=== PATIENT | male | born 1950 | race Two or more races ===

== ENCOUNTER 2017-02-15 00:09 | Inpatient (IN) | payer MEDICARE ==
[~2017-02-15] VITALS: Ht 175.3 cm; Wt 112.0 kg
[~2017-02-15 00:09] MED LIST: ALBU18HF INH; ALBU2.5V NPPB; AZIT500T5 PO; BENZ-17 PO; GUAI10LI PO; GUAI237L83 PO; PANT40TA5 PO; PRED20TA PO; TAMS-11 PO
[2017-02-15] MEDS ORDERED: ALBUTEROL/IPRATROPIUM 2.5MG/0.5MG, 3 ML ONE (00:48)
[2017-02-15] MEDS ORDERED: ALBUTEROL SULFATE 2.5 MG/3 ML ONE (00:49)
[2017-02-15] MEDS ORDERED: methylPREDNISolone SOD SUCC 125 MG/2 ML ONE (00:53)
[2017-02-15 00:59] LABS: BASOPHILS # (AUTO) 0.04 x10^3/uL (0-0.1); BASOPHILS % (AUTO) 1 % (0-1); EOSINOPHILS # (AUTO) 0.58 x10^3/uL (0-0.4); EOSINOPHILS % (AUTO) 7 % (1-7); LYMPHOCYTES # (AUTO) 2.07 x10^3/uL (1-3.4); LYMPHOCYTES % (AUTO) 24 % (22-44); MD NO; MEAN CORPUSCULAR HEMOGLOBIN 30.9 pg (27.5-34.5); MEAN CORPUSCULAR VOLUME 90.8 fL (81-97); MEAN PLATELET VOLUME 8.4 fL (7.4-10.4); MONOCYTES # (AUTO) 0.79 x10^3/uL (0.2-0.8); MONOCYTES % (AUTO) 9 % (2-9); NEUTROPHILS # (AUTO) 5.34 x10^3/uL (1.8-6.8); NEUTROPHILS % (AUTO) 61 % (42-75); PLATELET COUNT 194 x10^3/uL (130-400); RED BLOOD COUNT 4.36 x10^6/uL (4.38-5.82); RED CELL DISTRIBUTION WIDTH 13.1 % (9.4-14.8)
[2017-02-15] MEDS ORDERED: SODIUM CHLORIDE FLUSH 10ML SYR IVF ONE (01:00)
[2017-02-15] MEDS ORDERED: SODIUM CHLORIDE 0.9% 1,000ML IVBOLUS ONE (01:00)
[2017-02-15] MEDS ORDERED: methylPREDNISolone SOD SUCC 125 MG/2 ML IVP ONE (01:00)
[2017-02-15] MEDS ORDERED: ALBUTEROL SULFATE 2.5 MG/3 ML NPPB ONE ×2 (01:00→02:00)
[2017-02-15] MEDS ORDERED: ALBUTEROL/IPRATROPIUM 2.5MG/0.5MG, 3 ML NPPB ONE (01:00)
[2017-02-15 01:11] LABS: ALANINE AMINOTRANSFERASE 65 U/L (12-78); ALBUMIN 3.1 g/dL (3.4-5.0); ANION GAP 5 mmol/L (5-15); CALCIUM 8.3 mg/dL (8.5-10.1); CHLORIDE 107 mmol/L (98-107)
[2017-02-15 01:13] LABS: ALKALINE PHOSPHATASE 46 U/L (45-117); TOTAL PROTEIN 6.3 g/dL (6.4-8.2)
[2017-02-15 05:56] VITALS: BP 154/88
[2017-02-15] MEDS ORDERED: ONDANSETRON 2MG/ML, 2ML IVPush PRN (08:00)
[2017-02-15] MEDS ORDERED: ONDANSETRON ODT 4 MG PO PRN (08:00)
[2017-02-15] MEDS ORDERED: ACETAMINOPHEN 325 MG TABLET PO PRN (08:00)
[2017-02-15 08:12] VITALS: BP 149/83
[2017-02-15] MEDS: PANTOPROZOLE 40MG TABLET PO SCH (08:29)
[2017-02-15] MEDS: methylPREDNISolone SOD SUCC 125 MG/2 ML IVPush SCH ×2 (08:29→17:02)
[2017-02-15] MEDS: TAMSULOSIN 0.4 MG CAP.ER.24H PO SCH (08:29)
[2017-02-15] MEDS: SODIUM CHLORIDE 0.9% 1,000 ML IV SCH ×2 (08:29→21:23)
[2017-02-15] MEDS: ENOXAPARIN 40 MG/0.4 ML SQ SCH (08:30)
[2017-02-15] MEDS: GUAIFENESIN ER 600 MG TABLET PO SCH ×2 (08:30→21:19)
[2017-02-15] MEDS: FAMOTIDINE 20 MG TABLET PO SCH ×2 (08:30→21:19)
[2017-02-15] MEDS ORDERED: ALBUTEROL/IPRATROPIUM 2.5MG/0.5MG, 3 ML NPPB PRN ×2 (10:00)
[2017-02-15] MEDS ORDERED: ALBUTEROL/IPRATROPIUM 2.5MG/0.5MG, 3 ML NPPB SCH (11:00)
[2017-02-15] MEDS: ALBUTEROL/IPRATROPIUM 2.5MG/0.5MG, 3 ML NPPB SCH ×3 (12:25→19:53)
[2017-02-15 15:04] VITALS: BP 148/73
[2017-02-15 19:23] VITALS: BP 167/74
[2017-02-16] MEDS: methylPREDNISolone SOD SUCC 125 MG/2 ML IVPush SCH ×3 (01:08→17:15)
[2017-02-16 02:50] VITALS: BP 143/73
[2017-02-16 05:32] LABS: BASOPHILS % (AUTO) 0 % (0-1); EOSINOPHILS % (AUTO) 0 % (1-7); LYMPHOCYTES # (AUTO) 0.57 x10^3/uL (1-3.4); LYMPHOCYTES % (AUTO) 4 % (22-44); MD NO; MEAN CORPUSCULAR HGB CONC 34.6 g/dL (33.2-36.2); MEAN CORPUSCULAR VOLUME 89.5 fL (81-97); MEAN PLATELET VOLUME 8.5 fL (7.4-10.4); MONOCYTES # (AUTO) 0.32 x10^3/uL (0.2-0.8); MONOCYTES % (AUTO) 2 % (2-9); NEUTROPHILS # (AUTO) 12.73 x10^3/uL (1.8-6.8); NEUTROPHILS % (AUTO) 93 % (42-75); PLATELET COUNT 212 x10^3/uL (130-400); RED BLOOD COUNT 4.58 x10^6/uL (4.38-5.82); RED CELL DISTRIBUTION WIDTH 12.9 % (9.4-14.8)
[2017-02-16 05:37] LABS: ALBUMIN 3.1 g/dL (3.4-5.0); ANION GAP 7 mmol/L (5-15); CALCIUM 8.6 mg/dL (8.5-10.1); CHLORIDE 106 mmol/L (98-107)
[2017-02-16 05:54] LABS: ALANINE AMINOTRANSFERASE 57 U/L (12-78); ALKALINE PHOSPHATASE 48 U/L (45-117); BILIRUBIN,TOTAL 0.8 mg/dL (0.2-1.0); CREATININE 0.99 mg/dL (0.7-1.3); TOTAL PROTEIN 6.7 g/dL (6.4-8.2)
[2017-02-16] MEDS: ALBUTEROL/IPRATROPIUM 2.5MG/0.5MG, 3 ML NPPB SCH ×4 (06:22→19:32)
[2017-02-16 07:52] VITALS: BP 146/78
[2017-02-16] MEDS: ENOXAPARIN 40 MG/0.4 ML SQ SCH (08:28)
[2017-02-16] MEDS: PANTOPROZOLE 40MG TABLET PO SCH (08:28)
[2017-02-16] MEDS: GUAIFENESIN ER 600 MG TABLET PO SCH (09:51)
[2017-02-16] MEDS: TAMSULOSIN 0.4 MG CAP.ER.24H PO SCH (09:52)
[2017-02-16] MEDS: FAMOTIDINE 20 MG TABLET PO SCH (09:52)
[2017-02-16] MEDS ORDERED: GUAIFENESIN/DM 200-20MG, 10ML UDC PO PRN (10:30)
[2017-02-16] MEDS ORDERED: ONDANSETRON 2MG/ML, 2ML IVPush PRN (10:30)
[2017-02-16] MEDS: BUDESONIDE 0.5 MG/2 ML INHA INH SCH ×2 (10:37→19:33)
[2017-02-16] MEDS: SODIUM CHLORIDE 0.9% 1,000 ML IV SCH (10:56)
[2017-02-16] MEDS ORDERED: OMNIPAQUE 350 MG/ML, 100ML BOTTLE ONE (11:21)
[2017-02-16 13:40] VITALS: BP 142/83
[2017-02-16 20:56] VITALS: BP 142/70
[2017-02-17] MEDS: methylPREDNISolone SOD SUCC 125 MG/2 ML IVPush SCH ×3 (01:37→20:55)
[2017-02-17] MEDS: SODIUM CHLORIDE 0.9% 1,000 ML IV SCH (01:38)
[2017-02-17 01:58] VITALS: BP 135/92
[2017-02-17] MEDS: ALBUTEROL/IPRATROPIUM 2.5MG/0.5MG, 3 ML NPPB SCH ×4 (07:00→19:55)
[2017-02-17 07:57] VITALS: BP 150/91
[2017-02-17] MEDS: PANTOPROZOLE 40MG TABLET PO SCH (08:07)
[2017-02-17] MEDS: ENOXAPARIN 40 MG/0.4 ML SQ SCH (08:07)
[2017-02-17] MEDS: TAMSULOSIN 0.4 MG CAP.ER.24H PO SCH (08:07)
[2017-02-17] MEDS: BUDESONIDE 0.5 MG/2 ML INHA INH SCH ×2 (09:00→19:55)
[2017-02-17 13:51] VITALS: BP 147/69
[2017-02-17 20:48] VITALS: BP 154/79
[2017-02-18 03:45] VITALS: BP 156/81
[2017-02-18 06:45] VITALS: BP 139/79
[2017-02-18] MEDS: PANTOPROZOLE 40MG TABLET PO SCH (08:12)
[2017-02-18] MEDS: methylPREDNISolone SOD SUCC 125 MG/2 ML IVPush SCH ×2 (08:12→21:08)
[2017-02-18] MEDS: TAMSULOSIN 0.4 MG CAP.ER.24H PO SCH (08:12)
[2017-02-18] MEDS: ENOXAPARIN 40 MG/0.4 ML SQ SCH (08:12)
[2017-02-18] MEDS: ALBUTEROL/IPRATROPIUM 2.5MG/0.5MG, 3 ML NPPB SCH ×4 (08:15→19:14)
[2017-02-18] MEDS: BUDESONIDE 0.5 MG/2 ML INHA INH SCH ×2 (11:25→19:14)
[2017-02-18 12:54] VITALS: BP 158/82
[2017-02-18 20:38] VITALS: BP 148/78
[2017-02-19] VITALS (7 sets, daily range): BP systolic 141–159; BP diastolic 71–89
[2017-02-19] MEDS: ENOXAPARIN 40 MG/0.4 ML SQ SCH (07:39)
[2017-02-19] MEDS: PANTOPROZOLE 40MG TABLET PO SCH (07:39)
[2017-02-19] MEDS: ALBUTEROL/IPRATROPIUM 2.5MG/0.5MG, 3 ML NPPB SCH ×4 (07:40→18:51)
[2017-02-19] MEDS: TAMSULOSIN 0.4 MG CAP.ER.24H PO SCH (09:54)
[2017-02-19] MEDS: methylPREDNISolone SOD SUCC 125 MG/2 ML IVPush SCH ×2 (09:54→20:10)
[2017-02-19] MEDS: FLUTICASONE/VILANTEROL 100-25MCG/INH INH SCH (11:06)
[2017-02-20 02:32] VITALS: BP 147/79
[2017-02-20 05:07] LABS: CREATININE 1.03 mg/dL (0.7-1.3)
[2017-02-20 07:11] VITALS: BP 151/93
[2017-02-20] MEDS: ALBUTEROL/IPRATROPIUM 2.5MG/0.5MG, 3 ML NPPB SCH ×2 (07:50→11:31)
[2017-02-20] MEDS: PANTOPROZOLE 40MG TABLET PO SCH (08:13)
[2017-02-20] MEDS: TAMSULOSIN 0.4 MG CAP.ER.24H PO SCH (08:13)
[2017-02-20] MEDS: FLUTICASONE/VILANTEROL 100-25MCG/INH INH SCH (08:13)
[2017-02-20] MEDS: ENOXAPARIN 40 MG/0.4 ML SQ SCH (08:13)
[2017-02-20 08:20] VITALS: BP 135/73
[2017-02-20 08:21] VITALS: BP 148/79
[2017-02-20 08:25] VITALS: BP 153/85
[2017-02-20] MEDS ORDERED: PRED20TA PO (08:44)
[2017-02-20] MEDS ORDERED: GUAI5SYR PO (08:44)
[2017-02-20] MEDS ORDERED: FLUT1AER INH (08:44)
[2017-02-20] MEDS ORDERED: methylPREDNISolone SOD SUCC 40 MG/ML IVPush SCH (09:00)
== END 2017-02-20 13:38 | disposition home or self-care (01) | DRG 189 ==
LOC: ED 02:04 → EDIP 02:15 → 4WST 06:55
PROVIDERS: ADMIT Surgery; ATTEND Surgery
DX: J96.01 Acute respiratory failure with hypoxia (principal); J45.901 Unspecified asthma with (acute) exacerbation; K21.9 Gastro-esophageal reflux disease without esophagitis; N40.0 Benign prostatic hyperplasia without lower urinary tract symptoms; Z87.01 Personal history of pneumonia (recurrent)
CPT/HCPCS: 36415; 71045; 71275; 80053; 82565; 83735; 85025; 85049; 87070; 87205; 93005; 93306; 94640; 96361; 96374; J1650; J7613; J7620; J7626; Q9967; J2920; J2930; J7030

== ENCOUNTER → 2017-12-07 | Outpatient (CLI) | payer MEDICARE ==
[~2017-12-07] MED LIST changes: +FLUT1AER INH; +GUAI5SYR PO; +REGADENOSON 0.4 MG/5 ML SYRINGE ONE
== END | disposition home or self-care (01) ==
LOC: CFH 08:35
PROVIDERS: ATTEND Internal Medicine Cardiovascular Disease
DX: R07.9 Chest pain, unspecified (principal)
CPT/HCPCS: 78452; 93017; A9502; J2785

== ENCOUNTER 2018-01-22 01:05 | Inpatient (IN) | payer MEDICARE ==
[~2018-01-22] VITALS: Ht 175.3 cm; Wt 104.4 kg
[~2018-01-22 01:05] MED LIST changes: -REGADENOSON 0.4 MG/5 ML SYRINGE ONE
[2018-01-22] MEDS ORDERED: methylPREDNISolone SOD SUCC 125 MG/2 ML ONE (01:11)
[2018-01-22] MEDS ORDERED: ALBUTEROL 0.5%, 20ML ONE (01:15)
[2018-01-22] MEDS ORDERED: methylPREDNISolone SOD SUCC 125 MG/2 ML IVP ONE (01:30)
[2018-01-22] MEDS ORDERED: ALBUTEROL 0.5%, 20ML NPPB SCH (01:30)
[2018-01-22 01:32] LABS: BASOPHILS # (AUTO) 0.06 x10^3/uL (0-0.1); BASOPHILS % (AUTO) 1 % (0-1); EOSINOPHILS # (AUTO) 0.83 x10^3/uL (0-0.4); EOSINOPHILS % (AUTO) 7 % (1-7); LYMPHOCYTES # (AUTO) 2.44 x10^3/uL (1-3.4); LYMPHOCYTES % (AUTO) 22 % (22-44); MD NO; MEAN CORPUSCULAR HEMOGLOBIN 30.9 pg (27.5-34.5); MEAN CORPUSCULAR HGB CONC 34.5 g/dL (33.2-36.2); MEAN CORPUSCULAR VOLUME 89.5 fL (81-97); MEAN PLATELET VOLUME 8.1 fL (7.4-10.4); MONOCYTES # (AUTO) 0.89 x10^3/uL (0.2-0.8); MONOCYTES % (AUTO) 8 % (2-9); NEUTROPHILS % (AUTO) 62 % (42-75); PLATELET COUNT 258 x10^3/uL (130-400); RED BLOOD COUNT 5.02 x10^6/uL (4.38-5.82); RED CELL DISTRIBUTION WIDTH 13.1 % (9.4-14.8)
[2018-01-22 01:42] LABS: ALANINE AMINOTRANSFERASE 63 U/L (12-78); ALBUMIN 4.2 g/dL (3.4-5.0); ANION GAP 10 mmol/L (5-15); CALCIUM 8.9 mg/dL (8.5-10.1); CHLORIDE 106 mmol/L (98-107); CREATININE 1.19 mg/dL (0.7-1.3)
[2018-01-22 01:46] LABS: ALKALINE PHOSPHATASE 67 U/L (45-117); BILIRUBIN,TOTAL 0.8 mg/dL (0.2-1.0); TOTAL PROTEIN 9.1 g/dL (6.4-8.2); TROPONIN I < 0.015 ng/mL (0.000-0.045)
[2018-01-22 03:10] VITALS: BP 145/81
[2018-01-22] MEDS: ALBUTEROL/IPRATROPIUM 2.5MG/0.5MG, 3 ML NPPB SCH ×6 (03:30→22:12)
[2018-01-22] MEDS ORDERED: ALBUTEROL/IPRATROPIUM 2.5MG/0.5MG, 3 ML NPPB PRN (03:30)
[2018-01-22] MEDS ORDERED: ONDANSETRON ODT 4 MG PO PRN (05:30)
[2018-01-22] MEDS ORDERED: ALBUTEROL SULFATE 2.5 MG/3 ML NPPB PRN (05:30)
[2018-01-22] MEDS ORDERED: FUROSEMIDE 40 MG/4 ML IV ONE (05:30)
[2018-01-22] MEDS ORDERED: hydrALAzine 20 MG/ML, 1ML IVPush PRN (05:30)
[2018-01-22] MEDS ORDERED: ACETAMINOPHEN 325 MG TABLET PO PRN (05:30)
[2018-01-22] MEDS ORDERED: ONDANSETRON 2MG/ML, 2ML IVPush PRN (05:30)
[2018-01-22] MEDS: methylPREDNISolone SOD SUCC 40 MG/ML IV SCH ×2 (06:12→17:03)
[2018-01-22] MEDS: GUAIFENESIN/DM 100-10MG, 5ML UDC PO PRN (06:13)
[2018-01-22] MEDS: ENOXAPARIN 40 MG/0.4 ML SQ SCH (06:13)
[2018-01-22] MEDS: BUDESONIDE 0.5 MG/2 ML INHA NPPB SCH ×2 (07:02→18:43)
[2018-01-22 07:25] VITALS: BP 145/76
[2018-01-22] MEDS: TAMSULOSIN 0.4 MG CAP.ER.24H PO SCH (08:57)
[2018-01-22] MEDS: PANTOPROZOLE 40MG TABLET PO SCH (08:57)
[2018-01-22] MEDS: SODIUM CHLORIDE FLUSH 10ML SYR IVF SCH ×2 (09:00→20:49)
[2018-01-22] MEDS ORDERED: FLUTICASONE/VILANTEROL 100-25MCG/INH INH SCH (09:00)
[2018-01-22] MEDS: TEMPLATE NON-FORMULARY MED. (Albuterol Sulfate (Ventolin Hfa) 90 MCG) INH SCH (09:00)
[2018-01-22] MEDS: BENZONATATE 100 MG CAPSULE PO SCH ×3 (09:07→20:48)
[2018-01-22 11:25] LABS: RAPID INFLUENZA A Negative (Negative); RAPID INFLUENZA B Negative (Negative)
[2018-01-22 15:08] VITALS: BP 124/73
[2018-01-22 15:11] VITALS: BP 125/75
[2018-01-22 15:14] VITALS: BP 127/80
[2018-01-22 19:29] VITALS: BP 135/68
[2018-01-23 00:49] VITALS: BP 131/80
[2018-01-23] MEDS: ALBUTEROL/IPRATROPIUM 2.5MG/0.5MG, 3 ML NPPB SCH ×5 (02:09→19:20)
[2018-01-23] MEDS: ENOXAPARIN 40 MG/0.4 ML SQ SCH (05:24)
[2018-01-23] MEDS: methylPREDNISolone SOD SUCC 40 MG/ML IV SCH ×2 (05:24→16:29)
[2018-01-23 05:46] LABS: BASOPHILS % (AUTO) 0 % (0-1); EOSINOPHILS # (AUTO) 0.01 x10^3/uL (0-0.4); EOSINOPHILS % (AUTO) 0 % (1-7); LYMPHOCYTES % (AUTO) 7 % (22-44); MD NO; MEAN CORPUSCULAR HEMOGLOBIN 30.8 pg (27.5-34.5); MEAN CORPUSCULAR HGB CONC 34.2 g/dL (33.2-36.2); MEAN CORPUSCULAR VOLUME 90.1 fL (81-97); MEAN PLATELET VOLUME 8.5 fL (7.4-10.4); MONOCYTES # (AUTO) 0.86 x10^3/uL (0.2-0.8); MONOCYTES % (AUTO) 6 % (2-9); NEUTROPHILS # (AUTO) 12.46 x10^3/uL (1.8-6.8); NEUTROPHILS % (AUTO) 87 % (42-75); PLATELET COUNT 249 x10^3/uL (130-400); RED BLOOD COUNT 4.62 x10^6/uL (4.38-5.82); RED CELL DISTRIBUTION WIDTH 12.8 % (9.4-14.8)
[2018-01-23 05:51] LABS: ANION GAP 9 mmol/L (5-15); CHLORIDE 104 mmol/L (98-107); CREATININE 1.15 mg/dL (0.7-1.3)
[2018-01-23] MEDS: BUDESONIDE 0.5 MG/2 ML INHA NPPB SCH ×2 (07:10→19:20)
[2018-01-23 07:26] VITALS: BP 152/82
[2018-01-23] MEDS: PANTOPROZOLE 40MG TABLET PO SCH (08:37)
[2018-01-23] MEDS: TAMSULOSIN 0.4 MG CAP.ER.24H PO SCH (08:37)
[2018-01-23] MEDS: SODIUM CHLORIDE FLUSH 10ML SYR IVF SCH ×2 (08:38→20:36)
[2018-01-23] MEDS: BENZONATATE 100 MG CAPSULE PO SCH ×3 (08:38→20:35)
[2018-01-23] MEDS: TEMPLATE NON-FORMULARY MED. (Albuterol Sulfate (Ventolin Hfa) 90 MCG) INH SCH (08:38)
[2018-01-23 14:07] VITALS: BP 138/78
[2018-01-23] MEDS: HYDROcodone/CHLORPHENIR ORAL SUSP PO SCH (20:35)
[2018-01-23 20:43] VITALS: BP 144/79
[2018-01-24] MEDS: GUAIFENESIN/DM 100-10MG, 5ML UDC PO PRN (00:24)
[2018-01-24 02:49] VITALS: BP 143/87
[2018-01-24] MEDS: methylPREDNISolone SOD SUCC 40 MG/ML IV SCH (05:27)
[2018-01-24] MEDS: ENOXAPARIN 40 MG/0.4 ML SQ SCH (05:28)
[2018-01-24] MEDS: ALBUTEROL/IPRATROPIUM 2.5MG/0.5MG, 3 ML NPPB SCH ×4 (07:07→19:04)
[2018-01-24] MEDS: BUDESONIDE 0.5 MG/2 ML INHA NPPB SCH ×2 (07:07→19:04)
[2018-01-24 07:30] VITALS: BP 163/89
[2018-01-24] MEDS: TEMPLATE NON-FORMULARY MED. (Albuterol Sulfate (Ventolin Hfa) 90 MCG) INH SCH (09:00)
[2018-01-24] MEDS: BENZONATATE 100 MG CAPSULE PO SCH ×3 (10:06→20:54)
[2018-01-24] MEDS: TAMSULOSIN 0.4 MG CAP.ER.24H PO SCH (10:06)
[2018-01-24] MEDS: SODIUM CHLORIDE FLUSH 10ML SYR IVF SCH ×2 (10:07→20:53)
[2018-01-24] MEDS: PANTOPROZOLE 40MG TABLET PO SCH (10:07)
[2018-01-24] MEDS: methylPREDNISolone SOD SUCC 125 MG/2 ML IV SCH ×3 (11:40→23:11)
[2018-01-24] MEDS: POLYETHYLENE GLYCOL 17 GM PACKET PO PRN (12:56)
[2018-01-24 14:18] VITALS: BP 165/83
[2018-01-24 20:01] VITALS: BP 139/71
[2018-01-24] MEDS: HYDROcodone/CHLORPHENIR ORAL SUSP PO SCH (20:54)
[2018-01-25 03:50] VITALS: BP 145/84
[2018-01-25] MEDS: ENOXAPARIN 40 MG/0.4 ML SQ SCH (05:10)
[2018-01-25] MEDS: methylPREDNISolone SOD SUCC 125 MG/2 ML IV SCH ×4 (05:10→23:20)
[2018-01-25] MEDS: ALBUTEROL/IPRATROPIUM 2.5MG/0.5MG, 3 ML NPPB SCH ×3 (06:30→14:28)
[2018-01-25] MEDS: BUDESONIDE 0.5 MG/2 ML INHA NPPB SCH ×2 (06:30→19:22)
[2018-01-25 06:35] VITALS: BP 156/74
[2018-01-25] MEDS: TEMPLATE NON-FORMULARY MED. (Albuterol Sulfate (Ventolin Hfa) 90 MCG) INH SCH (09:00)
[2018-01-25] MEDS: BENZONATATE 100 MG CAPSULE PO SCH ×3 (09:21→20:51)
[2018-01-25] MEDS: PANTOPROZOLE 40MG TABLET PO SCH (09:21)
[2018-01-25] MEDS: TAMSULOSIN 0.4 MG CAP.ER.24H PO SCH (09:21)
[2018-01-25] MEDS: SODIUM CHLORIDE FLUSH 10ML SYR IVF SCH ×2 (09:21→20:52)
[2018-01-25 12:43] VITALS: BP 160/85
[2018-01-25] MEDS: POLYETHYLENE GLYCOL 17 GM PACKET PO PRN (15:28)
[2018-01-25] MEDS: GUAIFENESIN/DM 100-10MG, 5ML UDC PO PRN (15:35)
[2018-01-25 19:01] VITALS: BP 151/66
[2018-01-25] MEDS: HYDROcodone/CHLORPHENIR ORAL SUSP PO SCH (20:51)
[2018-01-26 01:47] VITALS: BP 151/88
[2018-01-26] MEDS: ENOXAPARIN 40 MG/0.4 ML SQ SCH (05:24)
[2018-01-26] MEDS: methylPREDNISolone SOD SUCC 125 MG/2 ML IV SCH ×4 (05:24→23:21)
[2018-01-26 07:22] VITALS: BP 150/80
[2018-01-26] MEDS: BUDESONIDE 0.5 MG/2 ML INHA NPPB SCH ×2 (07:32→19:39)
[2018-01-26] MEDS: ALBUTEROL/IPRATROPIUM 2.5MG/0.5MG, 3 ML NPPB SCH ×4 (07:32→19:39)
[2018-01-26] MEDS: PANTOPROZOLE 40MG TABLET PO SCH (09:28)
[2018-01-26] MEDS: TAMSULOSIN 0.4 MG CAP.ER.24H PO SCH (09:28)
[2018-01-26] MEDS: TEMPLATE NON-FORMULARY MED. (Albuterol Sulfate (Ventolin Hfa) 90 MCG) INH SCH (09:28)
[2018-01-26] MEDS: BENZONATATE 100 MG CAPSULE PO SCH ×3 (09:28→20:35)
[2018-01-26] MEDS: SODIUM CHLORIDE FLUSH 10ML SYR IVF SCH ×2 (09:29→20:35)
[2018-01-26 12:30] VITALS: BP 157/96
[2018-01-26] MEDS ORDERED: FUROSEMIDE 20 MG/2 ML IV ONE (16:30)
[2018-01-26 19:32] VITALS: BP 163/79
[2018-01-26] MEDS: HYDROcodone/CHLORPHENIR ORAL SUSP PO SCH (20:34)
[2018-01-27 02:31] VITALS: BP 135/74
[2018-01-27] MEDS: ENOXAPARIN 40 MG/0.4 ML SQ SCH (05:25)
[2018-01-27] MEDS: methylPREDNISolone SOD SUCC 125 MG/2 ML IV SCH ×4 (05:25→23:24)
[2018-01-27] MEDS: GUAIFENESIN/DM 100-10MG, 5ML UDC PO PRN (05:46)
[2018-01-27] MEDS: BUDESONIDE 0.5 MG/2 ML INHA NPPB SCH ×2 (06:55→19:26)
[2018-01-27] MEDS: ALBUTEROL/IPRATROPIUM 2.5MG/0.5MG, 3 ML NPPB SCH ×4 (06:55→19:26)
[2018-01-27 07:22] VITALS: BP 155/63
[2018-01-27] MEDS: POTASSIUM CHLORIDE 20 MEQ TAB.ER.PRT PO SCH (08:52)
[2018-01-27] MEDS: BENZONATATE 100 MG CAPSULE PO SCH ×3 (08:52→21:00)
[2018-01-27 08:53] LABS: MEAN CORPUSCULAR HGB CONC 34.3 g/dL (33.2-36.2); MEAN CORPUSCULAR VOLUME 90.6 fL (81-97); MEAN PLATELET VOLUME 8.3 fL (7.4-10.4); PLATELET COUNT 269 x10^3/uL (130-400)
[2018-01-27] MEDS: TAMSULOSIN 0.4 MG CAP.ER.24H PO SCH (08:53)
[2018-01-27] MEDS: PANTOPROZOLE 40MG TABLET PO SCH (08:53)
[2018-01-27] MEDS: TEMPLATE NON-FORMULARY MED. (Albuterol Sulfate (Ventolin Hfa) 90 MCG) INH SCH (08:54)
[2018-01-27 09:02] LABS: ANION GAP 8 mmol/L (5-15); CALCIUM 8.6 mg/dL (8.5-10.1); CHLORIDE 100 mmol/L (98-107); CREATININE 1.24 mg/dL (0.7-1.3)
[2018-01-27 09:15] LABS: BASOPHILS # (AUTO) 0.02 x10^3/uL (0-0.1); BASOPHILS % (AUTO) 0 % (0-1); EOSINOPHILS % (AUTO) 0 % (1-7); LYMPHOCYTES # (AUTO) 0.41 x10^3/uL (1-3.4); LYMPHOCYTES % (AUTO) 3 % (22-44); MD SCAN; MONOCYTES # (AUTO) 0.48 x10^3/uL (0.2-0.8); MONOCYTES % (AUTO) 3 % (2-9); NEUTROPHILS # (AUTO) 16.05 x10^3/uL (1.8-6.8); NEUTROPHILS % (AUTO) 95 % (42-75)
[2018-01-27] MEDS: SODIUM CHLORIDE FLUSH 10ML SYR IVF SCH ×2 (12:00→21:00)
[2018-01-27] MEDS ORDERED: FUROSEMIDE 20 MG/2 ML IV ONE ×2 (12:30→18:00)
[2018-01-27 13:15] VITALS: BP 157/83
[2018-01-27] MEDS ORDERED: TRAZODONE 50MG TABLET PO PRN (16:30)
[2018-01-27 21:36] VITALS: BP 149/75
[2018-01-27] MEDS: HYDROcodone/CHLORPHENIR ORAL SUSP PO SCH (21:39)
[2018-01-28 04:06] VITALS: BP 139/88
[2018-01-28 04:52] LABS: CREATININE 1.29 mg/dL (0.7-1.3)
[2018-01-28] MEDS: methylPREDNISolone SOD SUCC 125 MG/2 ML IV SCH ×3 (05:14→21:19)
[2018-01-28] MEDS: ENOXAPARIN 40 MG/0.4 ML SQ SCH (05:14)
[2018-01-28] MEDS: ALBUTEROL/IPRATROPIUM 2.5MG/0.5MG, 3 ML NPPB SCH ×4 (06:34→19:36)
[2018-01-28] MEDS: BUDESONIDE 0.5 MG/2 ML INHA NPPB SCH ×2 (06:34→19:36)
[2018-01-28 07:10] VITALS: BP 137/73
[2018-01-28 07:34] VITALS: BP 156/83
[2018-01-28] MEDS: POTASSIUM CHLORIDE 20 MEQ TAB.ER.PRT PO SCH (09:06)
[2018-01-28] MEDS: TAMSULOSIN 0.4 MG CAP.ER.24H PO SCH (09:06)
[2018-01-28] MEDS: PANTOPROZOLE 40MG TABLET PO SCH (09:06)
[2018-01-28] MEDS: TEMPLATE NON-FORMULARY MED. (Albuterol Sulfate (Ventolin Hfa) 90 MCG) INH SCH (09:06)
[2018-01-28] MEDS: BENZONATATE 100 MG CAPSULE PO SCH ×3 (09:06→21:19)
[2018-01-28 09:20] LABS: ANION GAP 10 mmol/L (5-15); CALCIUM 8.9 mg/dL (8.5-10.1); CHLORIDE 98 mmol/L (98-107); CREATININE 1.29 mg/dL (0.7-1.3)
[2018-01-28] MEDS ORDERED: OMNIPAQUE 350 MG/ML, 100ML BOTTLE ONE (10:31)
[2018-01-28] MEDS: CEFTRIAXONE PMX 1GM/50ML 50 ML IV SCH (11:41)
[2018-01-28] MEDS: SODIUM CHLORIDE FLUSH 10ML SYR IVF SCH ×2 (11:49→21:20)
[2018-01-28] MEDS: AZITHROMYCIN 500 MG in SODIUM CHLORIDE 0.9% 250 ML IV SCH (12:48)
[2018-01-28 13:03] VITALS: BP 150/76
[2018-01-28 20:00] VITALS: BP 141/71
[2018-01-28] MEDS: HYDROcodone/CHLORPHENIR ORAL SUSP PO SCH (21:19)
[2018-01-29 02:00] VITALS: BP 143/75
[2018-01-29 05:42] LABS: MEAN CORPUSCULAR HEMOGLOBIN 31.3 pg (27.5-34.5); MEAN CORPUSCULAR HGB CONC 34.5 g/dL (33.2-36.2); MEAN CORPUSCULAR VOLUME 90.6 fL (81-97); MEAN PLATELET VOLUME 8.4 fL (7.4-10.4); PLATELET COUNT 238 x10^3/uL (130-400); RED BLOOD COUNT 4.82 x10^6/uL (4.38-5.82)
[2018-01-29 05:54] LABS: ANION GAP 8 mmol/L (5-15); CALCIUM 8.1 mg/dL (8.5-10.1); CHLORIDE 100 mmol/L (98-107)
[2018-01-29 05:55] LABS: CREATININE 1.29 mg/dL (0.7-1.3)
[2018-01-29] MEDS: ENOXAPARIN 40 MG/0.4 ML SQ SCH (06:11)
[2018-01-29] MEDS: methylPREDNISolone SOD SUCC 125 MG/2 ML IV SCH (06:12)
[2018-01-29 06:17] LABS: BASOPHILS # (AUTO) 0.02 x10^3/uL (0-0.1); BASOPHILS % (AUTO) 0 % (0-1); EOSINOPHILS % (AUTO) 0 % (1-7); LYMPHOCYTES # (AUTO) 0.43 x10^3/uL (1-3.4); LYMPHOCYTES % (AUTO) 2 % (22-44); MD SCAN; MONOCYTES # (AUTO) 0.64 x10^3/uL (0.2-0.8); MONOCYTES % (AUTO) 3 % (2-9); NEUTROPHILS # (AUTO) 17.69 x10^3/uL (1.8-6.8); NEUTROPHILS % (AUTO) 94 % (42-75)
[2018-01-29] MEDS: BUDESONIDE 0.5 MG/2 ML INHA NPPB SCH ×2 (06:40→19:35)
[2018-01-29] MEDS: ALBUTEROL/IPRATROPIUM 2.5MG/0.5MG, 3 ML NPPB SCH ×4 (06:40→19:35)
[2018-01-29 07:00] VITALS: BP 141/73
[2018-01-29] MEDS ORDERED: GLUCAGON 1 MG IM PRN (07:30)
[2018-01-29] MEDS ORDERED: DEXTROSE 4 GM TAB.CHEW PO PRN (07:30)
[2018-01-29] MEDS ORDERED: DEXTROSE 50%, 50ML SYRINGE IVPush PRN (07:30)
[2018-01-29] MEDS: TAMSULOSIN 0.4 MG CAP.ER.24H PO SCH (08:34)
[2018-01-29] MEDS: INSULIN LISPRO 100 UNITS/ML, PEN SQ-INSULIN SCH ×4 (08:34→21:42)
[2018-01-29] MEDS: POTASSIUM CHLORIDE 20 MEQ TAB.ER.PRT PO SCH (08:34)
[2018-01-29] MEDS: PANTOPROZOLE 40MG TABLET PO SCH (08:34)
[2018-01-29] MEDS: BENZONATATE 100 MG CAPSULE PO SCH ×3 (08:34→21:41)
[2018-01-29] MEDS: SODIUM CHLORIDE FLUSH 10ML SYR IVF SCH ×4 (08:35→21:42)
[2018-01-29 08:44] LABS: HEMOGLOBIN A1C 5.6 % (4.2-6.3)
[2018-01-29] MEDS: TEMPLATE NON-FORMULARY MED. (Albuterol Sulfate (Ventolin Hfa) 90 MCG) INH SCH (09:00)
[2018-01-29] MEDS: CEFTRIAXONE PMX 1GM/50ML 50 ML IV SCH (11:27)
[2018-01-29] MEDS: AZITHROMYCIN 500 MG in SODIUM CHLORIDE 0.9% 250 ML IV SCH (12:05)
[2018-01-29] MEDS ORDERED: methylPREDNISolone SOD SUCC 40 MG/ML IV SCH (13:30)
[2018-01-29 13:41] VITALS: BP 145/71
[2018-01-29] MEDS: AMOXICILLIN/CLAV 875-125MG TABLET PO SCH (14:37)
[2018-01-29 19:20] VITALS: BP 160/81
[2018-01-29] MEDS: HYDROcodone/CHLORPHENIR ORAL SUSP PO SCH (21:41)
[2018-01-30 01:28] VITALS: BP 145/78
[2018-01-30] MEDS: AMOXICILLIN/CLAV 875-125MG TABLET PO SCH (02:30)
[2018-01-30 05:04] LABS: BASOPHILS # (AUTO) 0.16 x10^3/uL (0-0.1); BASOPHILS % (AUTO) 1 % (0-1); EOSINOPHILS % (AUTO) 0 % (1-7); LYMPHOCYTES # (AUTO) 0.66 x10^3/uL (1-3.4); LYMPHOCYTES % (AUTO) 4 % (22-44); MD NO; MEAN CORPUSCULAR HGB CONC 34.1 g/dL (33.2-36.2); MEAN CORPUSCULAR VOLUME 91.1 fL (81-97); MEAN PLATELET VOLUME 8.3 fL (7.4-10.4); MONOCYTES # (AUTO) 1.02 x10^3/uL (0.2-0.8); MONOCYTES % (AUTO) 6 % (2-9); NEUTROPHILS # (AUTO) 15.22 x10^3/uL (1.8-6.8); NEUTROPHILS % (AUTO) 89 % (42-75); PLATELET COUNT 216 x10^3/uL (130-400); RED BLOOD COUNT 4.71 x10^6/uL (4.38-5.82); RED CELL DISTRIBUTION WIDTH 12.9 % (9.4-14.8)
[2018-01-30 05:14] LABS: ANION GAP 6 mmol/L (5-15); CALCIUM 8.5 mg/dL (8.5-10.1); CHLORIDE 103 mmol/L (98-107)
[2018-01-30 05:17] LABS: CREATININE 1.07 mg/dL (0.7-1.3)
[2018-01-30] MEDS: ENOXAPARIN 40 MG/0.4 ML SQ SCH (05:44)
[2018-01-30] MEDS: ALBUTEROL/IPRATROPIUM 2.5MG/0.5MG, 3 ML NPPB SCH ×2 (06:45→10:13)
[2018-01-30 06:46] VITALS: BP 156/84
[2018-01-30] MEDS: INSULIN LISPRO 100 UNITS/ML, PEN SQ-INSULIN SCH (07:00)
[2018-01-30] MEDS ORDERED: predniSONE 50MG TABLET PO SCH (08:00)
[2018-01-30] MEDS: PANTOPROZOLE 40MG TABLET PO SCH (08:38)
[2018-01-30] MEDS: BENZONATATE 100 MG CAPSULE PO SCH (08:38)
[2018-01-30] MEDS: SODIUM CHLORIDE FLUSH 10ML SYR IVF SCH ×2 (08:39)
[2018-01-30] MEDS: TEMPLATE NON-FORMULARY MED. (Albuterol Sulfate (Ventolin Hfa) 90 MCG) INH SCH (08:39)
[2018-01-30] MEDS: BUDESONIDE 0.5 MG/2 ML INHA NPPB SCH (09:00)
[2018-01-30] MEDS ORDERED: BUDE0.5A NPPB (09:38)
[2018-01-30] MEDS ORDERED: AMOX1TAB12 PO (09:38)
[2018-01-30] MEDS ORDERED: BENZ-17 PO (09:38)
[2018-01-30] MEDS ORDERED: PRED5TAB PO (09:38)
[2018-01-30] MEDS ORDERED: ALBU2.5V NPPB (09:38)
== END 2018-01-30 11:14 | disposition home or self-care (01) | DRG 193 ==
LOC: ED 01:22 → EDIP 02:17 → 4WST 03:01 → DCLOUNGE 01-30 11:00
PROVIDERS: ADMIT Hospitalist; ATTEND Hospitalist
DX: J18.9 Pneumonia, unspecified organism (principal); J96.01 Acute respiratory failure with hypoxia; J45.52 Severe persistent asthma with status asthmaticus; E66.01 Morbid (severe) obesity due to excess calories; K21.9 Gastro-esophageal reflux disease without esophagitis; N40.0 Benign prostatic hyperplasia without lower urinary tract symptoms; Z68.34 Body mass index [BMI] 34.0-34.9, adult; Z99.81 Dependence on supplemental oxygen
CPT/HCPCS: 36415; 71045; 71275; 80048; 80053; 82565; 82962; 83036; 83735; 83880; 84100; 84132; 84484; 85025; 87400; 93005; 93306; 94640; 94644; 96374; G0378; J0456; J0696; J1650; J1940; J7613; J7620; J7626; Q9967; J1815; J2920; J2930; J7050; J7512

== ENCOUNTER → 2018-02-02 | Outpatient (CLI) | payer MEDICARE ==
[~2018-02-02] MED LIST changes: +AMOX1TAB12 PO; +BUDE0.5A NPPB; +PRED5TAB PO
== END | disposition home or self-care (01) ==
LOC: RAD 09:53
PROVIDERS: ATTEND Family Medicine
DX: J18.8 Other pneumonia, unspecified organism (principal)
CPT/HCPCS: 71046

== ENCOUNTER → 2018-02-15 | Outpatient (CLI) | payer MEDICARE | END | disposition home or self-care (01) | LOC: RAD 07:27 | PROVIDERS: ATTEND Family Medicine | DX: J18.9 Pneumonia, unspecified organism (principal) | CPT/HCPCS: 71046 ==